=== PATIENT | male | born 1965 | race Caucasian/White ===

== ENCOUNTER → 2020-12-23 | Outpatient (CLI) | payer BC | LOC: COL.RAD | DX: S43.431A Superior glenoid labrum lesion of right shoulder, initial encounter (principal); M16.11 Unilateral primary osteoarthritis, right hip; M85.40 Solitary bone cyst, unspecified site; M24.151 Other articular cartilage disorders, right hip | CPT/HCPCS: A9585; J3301; Q9967 ==